=== PATIENT | male | born 1975 | race Caucasian/White ===

== ENCOUNTER 2023-09-02 08:57 | Day surgery (SDC) | payer OTHER ==
[~2023-09-02] VITALS: Ht 170.2 cm; Wt 89.8 kg
[2023-09-02] MEDS ORDERED: fentaNYL citrate 0.05 MG/ML VIAL ONE (09:53)
[2023-09-02] MEDS ORDERED: LIDOCAINE 2% 100 MG/5 ML UJET TP ONE (09:54)
== END 2023-09-02 11:10 | disposition home or self-care (01) ==
LOC: MDS 08:57 → MMU 08:59 → MDS 11:10
PROVIDERS: ATTEND Internal Medicine Gastroenterology
DX: Z12.11 Encounter for screening for malignant neoplasm of colon (principal); D12.3 Benign neoplasm of transverse colon; K57.30 Diverticulosis of large intestine without perforation or abscess without bleeding
CPT/HCPCS: 45385; J3010